=== PATIENT | female | born 1990 | race American Indian/Alaskan Native ===

== ENCOUNTER 2016-04-28 21:17 | Emergency (ER) | payer MEDICAID, OTHER ==
--- NOTE | 2016-04-29 02:20 | Emergency Department Report ---
HPI - General Chief Complaint: Nausea/Vomiting/Diarrhea Time Seen by Provider: 04/29/16 01:20 - HPI HPI: 26-year-old female presents today stating she had a fever of 100.9 at home. Patient states that she is currently 7 weeks and was concerned. Patient was diagnosed with pharyngitis 2 days ago and was put on amoxicillin. Patient states that her nausea and vomiting worsened today so she has not taken her antibiotics today. Patient would like something for her nausea. Denies abdominal pain, chest pain, shortness of breath, vaginal bleeding, vaginal discharge, urinary symptoms. Patient states that she has an ultrasound scheduled for next week. ED Past Medical Hx - Past Medical History Previous Medical History?: No - Surgical History Past Surgical History?: No - Social History Smoking Status: Never Smoker Substance Use Type: None - Medications Home Medications: Home Medications Medication Instructions Recorded Confirmed Last Taken Type Ondansetron [Zofran ODT TAB] 4 mg PO Q8HR #20 tab.rapdis 04/29/16 Unknown Rx ED Review of Systems ROS: Stated complaint: FEVER Other details as noted in HPI Constitutional: fever. denies: chills, malaise Eyes: denies: eye pain ENT: denies: ear pain, throat pain, congestion Respiratory: denies: cough, shortness of breath, wheezing Cardiovascular: denies: chest pain, palpitations Endocrine: no symptoms reported Gastrointestinal: nausea, vomiting. denies: abdominal pain Neurological: denies: headache, weakness Physical Exam - Physical Exam Vital Signs: Vital Signs 04/28/16 22:53 Temperature 99.5 F Pulse Rate 107 H Respiratory 16 Rate Blood Pressure 102/71 O2 Sat by Pulse 100 Oximetry Physical Exam: GENERAL: The patient is well-developed and well-nourished. Patient is in NAD. HEAD: Normocephalic. Atraumatic. EYES: PERRL. EARS: External auditory canals and tympanic membranes clear; hearing grossly intact. NOSE: Normal nasal mucosa with no nasal discharge. THROAT: No erythema, swelling or exudates. CHEST/LUNGS: Clear to auscultation throughout. HEART/CARDIOVASCULAR: Regular rate and rhythm. ABDOMEN: Abdomen is soft, nontender. Bowel sounds normoactive. No guarding or rebound tenderness. EXTREMITIES: Peripheral pulses intact. Capillary refill less than 2 seconds. NEURO: Alert and oriented x 3. Normal gait. ED Course Vital Signs 04/28/16 22:53 Temperature 99.5 F Pulse Rate 107 H Respiratory 16 Rate Blood Pressure 102/71 O2 Sat by Pulse 100 Oximetry ED Medical Decision Making - Medical Decision Making 26-year-old female presents today with fever, nausea and vomiting in . At time of exam patient's fever is 98.4. Recommended patient to continue her use of antibiotics. Patient is in no acute distress at this time. She will be discharged home and is encouraged to follow up with a primary care provider. She will be sent home on Zofran and is encouraged to return to the emergency room for any worsening symptoms. Critical care attestation.: If time is entered above; I have spent that time in minutes in the direct care of this critically ill patient, excluding procedure time. ED Disposition Clinical Impression: Nausea and vomiting during Disposition: DISCHARGED TO HOME OR SELFCARE Is pt being admited?: No Does the pt Need Aspirin: No Condition: Stable Instructions: (ED), Acute Nausea and Vomiting (ED) Additional Instructions: Follow-up with primary care provider. Return to the emergency department if symptoms worsen. Prescriptions: Ondansetron [Zofran ODT TAB] 4 mg PO Q8HR #20 tab.rapdis Referrals: PRIMARY CARE, [Primary Care Provider] - 3-5 Days [facility] [Outside] - 3-5 Days Forms: Work/School Release Form(ED), Accompanied Note Time of Disposition: 02:24
[2016-04-29 02:48] VITALS: BP 107/68
== END 2016-04-29 02:48 | disposition home or self-care (01) ==
LOC: ED 21:17
DX: O21.0 Mild hyperemesis gravidarum (principal); O26.891 Other specified pregnancy related conditions, first trimester; R11.0 Nausea; R50.9 Fever, unspecified; Z3A.01 Less than 8 weeks gestation of pregnancy
CPT/HCPCS: 99282